=== PATIENT | female | born 1935 | race Caucasian/White ===

== ENCOUNTER 2017-03-18 03:27 | Inpatient (IN) | payer OTHER ==
[~2017-03-18] VITALS: Ht 147.3 cm; Wt 55.2 kg
[~2017-03-18 03:27] MED LIST: CALTRATE 600+D1 EAC1 PO; LIPITOR20 MG PO; NORVASC2.5 MG PO; OMEGA-31000 M1 PO; PROTONIX40 MG PO; TOPROL XL50 MG PO; XALATAN2.5 ML BOTH EYES; ZESTRIL40 MG PO
[2017-03-18 03:58] LABS: HEMATOCRIT 44.9 % (36.0-46.0); MCH 31.2 PG (29.0-34.0); MCHC 32.5 G/DL (30.0-36.0); MCV 95.9 FL (83-99); MEAN PLAT.VOLUME 9.6 uM^3 (9.5-12.4); PLATELET COUNT 236 K/uL (156-360); RBC DIS.WIDTH-CV 13.2 % (11.8-14.6); RBC DIS.WIDTH-SD 46.8 % (39-53); RED BLOOD COUNT 4.68 M/uL (3.80-5.20); WHITE BLOOD COUNT 20.8 K/uL (4.1-10.2)
[2017-03-18 04:10] LABS: CHLORIDE 100 mEq/L (99-109); POTASSIUM 3.7 mEq/L (3.7-5.4); SODIUM 138 mEq/L (136-147)
[2017-03-18 04:12] LABS: GLUCOSE 129 mg/dL (70-99)
[2017-03-18 04:13] LABS: ANION GAP 9 MEQ/L (2-14)
[2017-03-18 04:14] LABS: TOTAL BILIRUBIN 0.9 mg/dL (0.0-1.0)
[2017-03-18 04:15] LABS: ALKALINE PHOSPHATASE 46 IU/L (3-129)
[2017-03-18 04:16] LABS: GFR ESTIMATE (CALCULATED) 56 mL/min/; PROTHROMBIN TIME 10.3 (9.2-11.2); PTT 22.7 (25-32)
[2017-03-18 04:17] LABS: UREA NITROGEN (BUN) 14 mg/dL (9-23)
[2017-03-18 07:19] LABS: ADD MIUA? YES; BILIRUBIN NEGATIVE; BLOOD SMALL; COLOR AMBER ((YELLOW)); GLUCOSE (STRIP) NEGATIVE; KETONES 20; LEUKOCYTES LARGE; NITRITE NEGATIVE; PROTEIN (STRIP) 30; SPECIFIC GRAVITY 1.012 (1.000-1.030)
[2017-03-18 07:29] LABS: BACTERIA 2+ /HPF; CALCIUM OXALATE CRYSTALS 2+ /HPF; EPITHELIAL CELLS 1+ /HPF; GRANULAR CASTS 15-20 /LPF; HYALINE CASTS 20-30 /LPF; MUCUS 2+ /LPF; UCUL ADDED? YES; WHITE BLOOD CELLS TNTC /HPF (0-5)
[2017-03-18 21:39] LABS: C DIFF TOXIN NEGATIVE (NEGATIVE)
[2017-03-18 21:50] LABS: PROBE CHECK PASS; SPECIMEN PROCESSING CONTROL PASS
[2017-03-18 23:31] VITALS: BP 153/78
[2017-03-19 03:25] VITALS: BP 141/70
[2017-03-19 07:15] VITALS: BP 130/73
[2017-03-19 07:27] LABS: MCH 32.4 PG (29.0-34.0); MCHC 33.6 G/DL (30.0-36.0); MCV 96.3 FL (83-99); MEAN PLAT.VOLUME 10.3 uM^3 (9.5-12.4); PLATELET COUNT 204 K/uL (156-360); RBC DIS.WIDTH-CV 13.4 % (11.8-14.6); RBC DIS.WIDTH-SD 47.9 % (39-53); WHITE BLOOD COUNT 12.2 K/uL (4.1-10.2)
[2017-03-19 07:34] LABS: RED BLOOD COUNT 3.74 M/uL (3.80-5.20)
[2017-03-19 07:44] LABS: ANION GAP 7 MEQ/L (2-14); CHLORIDE 106 MEQ/L (99-109); GFR ESTIMATE (CALCULATED) > 59 mL/min/; POTASSIUM 4.1 MEQ/L (3.7-5.4); SAMPLE HEMOLYSIS CHECK 0; SAMPLE ICTERIC CHECK 0; SAMPLE LIPEMIA CHECK 0; SODIUM 140 MEQ/L (136-147); UREA NITROGEN (BUN) 5 mg/dL (9-23)
[2017-03-19 07:46] LABS: GLUCOSE 87 mg/dL (70-99)
[2017-03-19 11:50] VITALS: BP 176/80
[2017-03-20 00:05] VITALS: BP 160/78
[2017-03-20 07:04] LABS: EOSINOPHIL (%) 2.9 % (0-5); EOSINOPHIL COUNT 0.3 K/uL (0-0.3); HEMATOCRIT 35.4 % (36.0-46.0); IMMATURE GRANULOCYTE (%) 0.3 % (0.0-0.7); INSTRUMENT ABS NEUTROPHIL CT 6.2 K/uL; LYMPHOCYTE COUNT 2.5 K/uL (1.0-2.8); MCHC 33.1 G/DL (30.0-36.0); MCV 96.7 FL (83-99); MEAN PLAT.VOLUME 9.9 uM^3 (9.5-12.4); MONOCYTE (%) 9.8 % (3-12); NEUTROPHIL COUNT 6.2 K/uL (1.8-6.4); PLATELET COUNT 161 K/uL (156-360); RBC DIS.WIDTH-CV 13.2 % (11.8-14.6); RBC DIS.WIDTH-SD 47.8 % (39-53); RED BLOOD COUNT 3.66 M/uL (3.80-5.20); WHITE BLOOD COUNT 10.1 K/uL (4.1-10.2)
[2017-03-20 07:20] LABS: ANION GAP 6 MEQ/L (2-14); CHLORIDE 104 MEQ/L (99-109); GFR ESTIMATE (CALCULATED) > 59 mL/min/; GLUCOSE 94 mg/dL (70-99); MAGNESIUM 1.6 mg/dl (1.3-2.7); POTASSIUM 3.5 MEQ/L (3.7-5.4); SAMPLE HEMOLYSIS CHECK 0; SAMPLE ICTERIC CHECK 0; SAMPLE LIPEMIA CHECK 0; SODIUM 139 MEQ/L (136-147); UREA NITROGEN (BUN) 5 mg/dL (9-23)
[2017-03-20 07:43] VITALS: BP 155/86
[2017-03-20 15:43] VITALS: BP 147/59
[2017-03-20 19:37] VITALS: BP 158/80
[2017-03-21 00:34] VITALS: BP 177/82
[2017-03-21 00:49] VITALS: BP 162/84
[2017-03-21 01:00] VITALS: BP 145/78
[2017-03-21 03:18] VITALS: BP 143/74
[2017-03-21 07:05] VITALS: BP 169/90
[2017-03-21] MEDS ORDERED: FLAGYL500 MG PO (10:02)
[2017-03-21] MEDS ORDERED: CIPRO500 MG PO (10:02)
== END 2017-03-21 12:20 | disposition home or self-care (01) | DRG 392 ==
LOC: EME 03:27 → EDOF 08:04 → 2EAST 08:04
PROVIDERS: Emergency Medicine; Internal Medicine
DX: A09 Infectious gastroenteritis and colitis, unspecified (principal); M41.9 Scoliosis, unspecified; K57.30 Diverticulosis of large intestine without perforation or abscess without bleeding; J84.10 Pulmonary fibrosis, unspecified; I10 Essential (primary) hypertension; E78.5 Hyperlipidemia, unspecified; N39.0 Urinary tract infection, site not specified
CPT/HCPCS: 74176; 80048; 80053; 81003; 83605; 83735; 85025; 85027; 85610; 85651; 85730; 86900; 86901; 87040; 87045; 87046; 87086; 87493; 87506; 94799; 99281; 99285; J1956; J7030; S0028; S0030

== ENCOUNTER 2017-05-25 00:27 | Emergency (ER) | payer OTHER ==
[~2017-05-25] VITALS: Ht 147.3 cm; Wt 54.0 kg
[~2017-05-25 00:27] MED LIST changes: +CIPRO500 MG PO; +FLAGYL500 MG PO
[2017-05-25 01:02] LABS: ADD MIUA? YES; BILIRUBIN NEGATIVE; BLOOD LARGE; COLOR YELLOW ((YELLOW)); GLUCOSE (STRIP) NEGATIVE; KETONES NEGATIVE; LEUKOCYTES LARGE; NITRITE NEGATIVE; PROTEIN (STRIP) 100; SPECIFIC GRAVITY 1.006 (1.000-1.030); UROBILINOGEN 0.2 MG/DL (0.2-1.0)
[2017-05-25] MEDS ORDERED: MACROBID100 MG PO (01:17)
[2017-05-25] MEDS ORDERED: PYRIDIUM100 MG PO (01:17)
[2017-05-25 01:36] LABS: EPITHELIAL CELLS RARE /HPF; MUCUS NONE SEEN /LPF; RED BLOOD CELLS TNTC /HPF (0-5); WHITE BLOOD CELLS TNTC /HPF (0-5)
[2017-05-25 01:37] LABS: BACTERIA 1+ /HPF; CASTS NONE SEEN /LPF; CRYSTALS NONE SEEN; UCUL ADDED? YES
[2017-05-25 02:10] VITALS: BP 151/91
== END 2017-05-25 02:19 | disposition home or self-care (01) ==
LOC: EME 00:27
PROVIDERS: Emergency Medicine
DX: N30.00 Acute cystitis without hematuria (principal); I10 Essential (primary) hypertension; Z88.0 Allergy status to penicillin; Z87.891 Personal history of nicotine dependence
CPT/HCPCS: 81003; 87077; 87086; 87186; 99281; 99284